=== PATIENT | male | born 1985 | race Two or more races ===

== ENCOUNTER 2021-01-28 05:31 | Emergency (ER) | payer SELFPAY ==
[~2021-01-28] VITALS: Ht 172.7 cm; Wt 72.6 kg
--- NOTE | 2021-01-28 05:55 | NUR ---
PATIENT BIBRA 88 C/O LEFT PINKY/INDEX FINGER LACERATION S/P GRABBING BROKEN GLASS. PT +ETOH. PATIENT IS A/O X, RR EVEN AND UNLABORED, NO SOB NOTED. PATIENT CONNECTED TO [employer]ID[employer] MONITOR AND POX.
--- NOTE | 2021-01-28 05:56 | NUR ---
EMT AT BEDSIDE WOUND Tx
--- NOTE | 2021-01-28 06:03 | NUR ---
RAD AT [facility]
[2021-01-28] MEDS ORDERED: LIDOCAINE 1% INJ 50 ML MDV IJ ONE (06:12)
--- NOTE | 2021-01-28 06:13 | NUR ---
ER AT BEDSIDE
[2021-01-28] MEDS: LIDOCAINE 1% INJ 50 ML MDV IJ ONE (06:27)
--- NOTE | 2021-01-28 07:10 | NUR ---
ASSESSED PT ON BED ASLEEP, EASILY AROUSABLE, NOT IN RESPIRATORY DISTRESS, V/S STABLE, KEPT RESTED AND COMFORTABLE. WILL CONTINUE TO MONITOR.
[2021-01-28 07:19] LABS: BASOPHILS % (AUTO) 0.7 % (0.0-2.0); EOSINOPHILS % (AUTO) 0.5 % (0.0-6.0); HEMATOCRIT 42 % (39-51); HEMOGLOBIN 14.4 g/dL (13.5-17.5); LYMPHOCYTES # (AUTO) 1.3 K/uL (0.8-4.8); LYMPHOCYTES % (AUTO) 24.9 % (20.0-44.0); MEAN CORPUSCULAR HGB CONC 34 g/dl (31.0-36.0); MEAN CORPUSCULAR VOLUME 85 fL (80-96); MONOCYTES # (AUTO) 0.5 K/uL (0.1-1.30); MONOCYTES % (AUTO) 10.3 % (2.0-12.0); NEUTROPHILS # (AUTO) 3.2 K/uL (1.8-8.9); NEUTROPHILS % (AUTO) 63.6 % (43.0-81.0); PLATELET COUNT (AUTO) 233 K/uL (150-450); RED BLOOD CELL COUNT(AUTO) 4.97 MIL/uL (4.5-6.0); WHITE BLOOD COUNT (AUTO) 5.1 K/uL (4.3-11.0)
--- NOTE | 2021-01-28 07:22 | NUR ---
ER PHLEB AT BEDSIDE FOR BLOOD DRAW.
[2021-01-28 07:34] LABS: ALBUMIN 4.2 g/dL (3.4-5.0); BILIRUBIN,DIRECT 0.2 mg/dL (0.0-0.2); BILIRUBIN,TOTAL 0.7 mg/dL (0.2-1.0); CALCIUM, SERUM 8.4 mg/dL (8.5-10.1); POTASSIUM 3.9 mmol/L (3.5-5.1); TOTAL PROTEIN, SERUM 7.7 g/dL (6.4-8.2)
--- NOTE | 2021-01-28 09:11 | NUR ---
PT ABLE TO AMBULATE TO THE RESTROOM WITHOUT ASSISTANCE.
--- NOTE | 2021-01-28 11:05 | NUR ---
PT FRIEND IS HERE FOR PT [employer].
--- NOTE | 2021-01-28 11:10 | NUR ---
Patient discharged to home in stable condition. Written and verbal after care instructions given. Patient verbalizes understanding of instruction.
[2021-01-28 11:11] VITALS: BP 120/63
== END 2021-01-28 11:11 | disposition home or self-care (01) ==
LOC: ER 05:33
DX: S61.215A Laceration without foreign body of left ring finger without damage to nail, initial encounter (principal); S61.217A Laceration without foreign body of left little finger without damage to nail, initial encounter; F10.129 Alcohol abuse with intoxication, unspecified; Z60.2 Problems related to living alone; W25.XXXA Contact with sharp glass, initial encounter; Y93.89 Activity, other specified; Y92.89 Other specified places as the place of occurrence of the external cause; Y99.8 Other external cause status; Y90.7 Blood alcohol level of 200-239 mg/100 ml
CPT/HCPCS: 12002; 36415; 73140; 80048; 80076; 80143; 80320; 85025; 99291; A6403; J3490; G0480

== ENCOUNTER 2021-01-30 09:35 | Emergency (ER) | payer OTHER ==
[~2021-01-30] VITALS: Ht 167.6 cm; Wt 72.6 kg
[2021-01-30 09:38] VITALS: BP 128/81
[2021-01-30] MEDS ORDERED: SULF1TAB48 PO (09:44)
[2021-01-30] MEDS ORDERED: CEPH500T PO (09:44)
== END 2021-01-30 09:52 | disposition home or self-care (01) ==
LOC: ER 09:38
DX: S61.215D Laceration without foreign body of left ring finger without damage to nail, subsequent encounter (principal); S61.217D Laceration without foreign body of left little finger without damage to nail, subsequent encounter; Z60.2 Problems related to living alone; X58.XXXD Exposure to other specified factors, subsequent encounter